=== PATIENT | male | born 1970 | race Caucasian/White ===

== ENCOUNTER → 2020-07-28 08:27 | Outpatient (CLI) | payer OTHER, SELFPAY ==
[2020-07-28] MEDS: COVID-19 VACC #1, MRNA(MOD) 100 MCG/0.5 ML VIAL IM (08:38)
== END ==
PROVIDERS: Visit Provider Internal Medicine
DX: Z23 Encounter for immunization (principal)
CPT/HCPCS: 0011A; 91301

== ENCOUNTER → 2020-08-25 08:18 | Outpatient (CLI) | payer OTHER, SELFPAY ==
[2020-08-25] MEDS: COVID-19 VACC #2, MRNA(MOD) 100 MCG/0.5 ML VIAL IM (08:26)
== END ==
PROVIDERS: Visit Provider Internal Medicine
DX: Z23 Encounter for immunization (principal)
CPT/HCPCS: 0012A; 91301

== ENCOUNTER → 2020-10-10 13:13 | Outpatient (CLI) | payer OTHER, SELFPAY ==
--- NOTE | 2020-10-10 13:14 | DI.RAD.S_ITS ---
PROCEDURE: XR KNEE LT 3V INDICATIONS: swollen knee TECHNIQUE: 3 views of the knee were acquired. COMPARISON: None. FINDINGS: Bones: No fractures or dislocations. No suspicious bony lesions. Soft tissues: Large joint effusion. No lipohemarthrosis demonstrated. Prepatellar soft tissue swelling suspected. No suspicious soft tissue calcifications. IMPRESSION: No fracture or dislocation. Large joint effusion. If clinically indicated consider further evaluation with MRI of the knee. Dictated by: Karri Wolfe M.D. on 10/10/2020 at 13:50 Approved by: Karri Wolfe M.D. on 10/10/2020 at 13:52
== END ==
PROVIDERS: PCP Family Medicine; Referring Provider Physician Assistant; Visit Provider Physician Assistant
DX: R60.9 Edema, unspecified (principal); M25.462 Effusion, left knee
CPT/HCPCS: 73562

== ENCOUNTER → 2020-10-20 17:38 | Outpatient (CLI) | payer OTHER, SELFPAY ==
--- NOTE | 2020-10-20 | DI.MRI.S_ITS ---
PROCEDURE: MR KNEE LT WO CON INDICATIONS: Strain of left quadriceps muscle Pain in left knee TECHNIQUE: Noncontrast sagittal PD fast spin echo and T2 fast spin echo with fat saturation, sagittal 3-D FLASH with fat saturation; coronal T1 spin echo and PD fast spin echo with fat saturation, and axial PD fast spin echo with fat saturation through the knee. COMPARISON: None. FINDINGS: Image quality: Excellent. Menisci: The medial and lateral menisci demonstrate normal morphology and internal signal. The meniscal root ligaments appear intact. Cruciate ligaments: The anterior and posterior cruciate ligaments appear intact. Medial structures: The medial collateral ligament appears intact. The posterior oblique ligament, semimembranosus tendon insertions, oblique popliteal ligament, and meniscocapsular junction appear intact. Visualized portions of the pes anserinus tendons appear normal. No abnormal bursal fluid. Lateral structures: The lateral collateral ligament, long and short heads of the biceps femoris tendon appear intact. The popliteus tendon appears normal; the popliteofibular ligament appears intact. The posterosuperior and anteroinferior popliteomeniscal fascicles appear intact. The arcuate and fabellofibular ligaments appear intact, on either side of the lateral inferior geniculate artery. Iliotibial band appears normal. Anterior structures: There is soft tissue swelling along anterior aspect of patella and patella tendon. There is full-thickness rupture of the distal quadriceps tendon at its insertion on superior patella with up to 1.7 cm proximal retraction of torn tendon fibers and moderate amount of surrounding fluid and soft tissue edema. Patellar tendon is intact. Patellar alignment is normal. No femoral trochlear dysplasia or ventral trochlear prominence. No edema in the infrapatellar fat pad. Bones and cartilage: No bone marrow contusions or fractures. The cartilage of the medial and lateral femorotibial compartments appears normal in thickness. 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 Joint space: There is small to moderate amount of joint fluid. No Looney's cyst. Normal appearing synovial plicae are incidentally noted. IMPRESSION: 1. Full-thickness rupture of distal quadriceps tendon at its insertion on superior patella with up to 1.7 cm proximal retraction of torn tendon fibers and extensive surrounding soft tissue edema and fluid. Patellar tendon is intact. 2. 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 No marrow edema. No fracture or dislocation. 3. Cruciate ligaments are intact. 4. No evidence of focal meniscal tear. Dictated by: Shawn Hamilton M.D. on 10/23/2020 at 8:23 Approved by: Shawn Hamilton M.D. on 10/23/2020 at 8:35
--- NOTE | 2020-10-20 | DI.MRI.S_ITS ---
PROCEDURE: MR FEMUR LT WO CON INDICATIONS: Strain of left quadriceps muscle Pain in left knee TECHNIQUE: Noncontrast coronal and sagittal T1 spin echo and STIR; axial T1 spin echo and T2 fast spin echo with fat saturation through the left thigh. COMPARISON: None. FINDINGS: Image quality: Excellent. Bones: The visualized bone marrow demonstrates normal signal on all sequences. The overlying cortex appears intact. No fractures lines or intra-osseous lesions. Soft tissues: There is edema involving distal vastus matter Porter muscle extending to musculotendinous junction with full-thickness rupture of distal quadriceps tendon at its superior patellar insertion and up to 1.7 cm proximal retraction of torn tendon fibers with surrounding soft tissue edema and fluid. Moderate left knee joint effusion is seen. No other muscle or tendon signal abnormality is seen. Visualized portion of patellar tendon is intact. IMPRESSION: 1. Full-thickness rupture involving most distal left quadriceps tendon with up to 1.7 cm proximal retraction to the 2. Strain/low-grade partial-thickness tear involving distal left vastus lateralis muscle extending to musculotendinous junction. 3. No marrow edema or suspicious intraosseous lesion. No fracture or dislocation is seen in left femur. No evidence of avascular necrosis of femoral head. Dictated by: Shawn Hamilton M.D. on 10/23/2020 at 10:11 Approved by: Shawn Hamilton M.D. on 10/23/2020 at 10:52
== END ==
PROVIDERS: PCP Family Medicine; Referring Provider Orthopaedic Surgery Adult Reconstructive Orthopaedic Surgery; Visit Provider Orthopaedic Surgery Adult Reconstructive Orthopaedic Surgery
DX: S76.112A Strain of left quadriceps muscle, fascia and tendon, initial encounter (principal); M25.562 Pain in left knee; M94.262 Chondromalacia, left knee
CPT/HCPCS: 73718; 73721

== ENCOUNTER → 2020-10-23 16:17 | Outpatient (CLI) | payer OTHER, SELFPAY ==
[2020-10-23 17:23] LABS: Add Manual Diff / Slide Review NO; Basophils Absolute Auto 0 /uL (0-100); Basophils Percent Auto 0.5 % (0-2); Eosinophils Absolute Auto 200 /uL (0-450); Eosinophils Percent Auto 2.9 % (2-4); Hematocrit 44.5 % (41-53); Hemoglobin 15.2 g/dL (13.5-17.5); Lymphocytes Absolute Auto 1900 /uL (1100-4500); Lymphocytes Percent Auto 30.2 % (25-40); Mean Corpuscular HGB Conc 34.2 % (30-36); Mean Corpuscular Hemoglobin 31.6 PG (26-34); Mean Corpuscular Volume 92.6 fL (80-100); Monocytes Absolute Auto 700 /uL (0-900); Monocytes Percent Auto 11.1 % (3-14); Neutrophils Absolute Auto 3500 /uL (1500-7000); Neutrophils Percent Auto 55.3 % (50-75); Platelet Count 238 X10^3/uL (150-400); Red Blood Cell Count 4.81 X10^6/uL (4.5-5.9); Red Cell Distribution Width 13.8 % (11.6-14.8); White Blood Cell Count 6.2 X10^3/uL (4.5-11.0)
[2020-10-23 18:10] LABS: BUN Creatinine Ratio 20.6 (6-22); Blood Urea Nitrogen 20 mg/dL (9-20); Calcium 8.9 mg/dL (8.4-10.2); Carbon Dioxide 26 mmol/L (22-32); Chloride 105 mmol/L (98-107); Estimated Glomerular Filt Rate > 60.0 mL/min (>60); Glucose 88 mg/dL (70-100); HEMOLYSIS < 15 (0-50); Potassium 4.2 mmol/L (3.4-5.1); Sodium 136 mmol/L (137-145)
== END ==
PROVIDERS: PCP Family Medicine; Referring Provider Orthopaedic Surgery Adult Reconstructive Orthopaedic Surgery; Visit Provider Orthopaedic Surgery Adult Reconstructive Orthopaedic Surgery
DX: M25.562 Pain in left knee (principal); Z01.818 Encounter for other preprocedural examination; Z01.812 Encounter for preprocedural laboratory examination
CPT/HCPCS: 36415; 80048; 85025; 93005; 93010

== ENCOUNTER → 2023-02-26 16:02 | Outpatient (CLI) | payer OTHER, SELFPAY ==
--- NOTE | 2023-02-26 | DI.RAD.S_ITS ---
PROCEDURE: XR HIP W PEL IF DONE RT 2V INDICATIONS: HIP PAIN TECHNIQUE: AP pelvis with lateral view(s) of the right hip(s). COMPARISON: [facility], , HIP 2V RIGHT, 12/29/2012, 12:21. [facility], , HIP 2V LEFT, 04/11/2009, 8:55. FINDINGS: Bones: No fractures or dislocations. Right hip arthroplasty in place. The hardware appears intact without surrounding fracture or lucency. Mild degenerative changes of the left hip with joint space narrowing and marginal spurring. Pelvic ring appears intact. No suspicious bony lesions. Soft tissues: The visualized bowel gas pattern is normal. No suspicious soft tissue calcifications. IMPRESSION: Right hip arthroplasty without evidence of complication. Mild degenerative changes of the left hip. Dictated by: Juan M Canales M.D. on 02/26/2023 at 16:39 Approved by: Juan M Canales M.D. on 02/26/2023 at 16:40
--- NOTE | 2023-02-26 | DI.RAD.S_ITS ---
PROCEDURE: XR KNEE RT 1TO2V INDICATIONS: RIGHT KNEE PAIN TECHNIQUE: Two views of the knee were acquired. COMPARISON: [facility], CR, XR KNEE LT 3V, 10/10/2020, 13:20. FINDINGS: Bones: No fractures or dislocations. Mild degenerative changes of the knee with mild medial joint space narrowing and marginal spurring. No suspicious bony lesions. Soft tissues: Small joint effusion. No suspicious soft tissue calcifications. IMPRESSION: Mild degenerative changes of the left knee. No acute osseous abnormalities. Dictated by: Juan M Canales M.D. on 02/26/2023 at 16:38 Approved by: Juan M Canales M.D. on 02/26/2023 at 16:39
== END ==
PROVIDERS: PCP Family Medicine; Referring Provider Family Medicine; Visit Provider Family Medicine
DX: S76.111A Strain of right quadriceps muscle, fascia and tendon, initial encounter (principal); X58.XXXA Exposure to other specified factors, initial encounter; Z96.641 Presence of right artificial hip joint
CPT/HCPCS: 73502; 73560

== ENCOUNTER → 2023-03-17 | Outpatient (CLI) | payer OTHER, SELFPAY ==
--- NOTE | 2023-03-17 | DI.MRI.S_ITS ---
PROCEDURE: MR FEMUR RT WO CON INDICATIONS: STRAIN OF RIGHT QUDRICEP MUSCLES TECHNIQUE: Noncontrast coronal and sagittal T1 spin echo and STIR; axial T1 spin echo and T2 fast spin echo with fat saturation through the right thigh COMPARISON: None. FINDINGS: Image quality: Excellent. Bones: Patient is status post prior right total hip arthroplasty with susceptibility artifact seen in proximal to mid right femoral shaft. No gross marrow edema. No acute fracture or dislocation. No suspicious intraosseous lesions. Soft tissues: There is edema involving right vastus intermedius muscle with fluid extending along fascial plane between vastus intermedius and vastus lateralis muscles. Edema is also noted within posterior medial aspect of mid to distal vastus medialis muscle and lateral aspect of vastus medialis muscle extending to musculotendinous junction. There is thickening of the quadriceps tendon with full-thickness rupture from its insertion on superior patella and up to 1.5 cm proximal retraction of torn tendon fibers and moderate to large amount of surrounding fluid and soft tissue edema. Moderate amount of right knee joint effusion is seen. No significant patellar subluxation. No intra-articular loose bodies. IMPRESSION: 1. Full-thickness rupture of distal quadriceps tendon at its superior patellar insertion with up to 1.5 cm proximal retraction of torn tendon fibers and large amount of surrounding fluid and soft tissue edema. 2. Strain/low-grade partial-thickness tear involving mid to distal right vastus medialis muscle, vastus lateralis muscle, and vastus intermedius muscle as described above. No other muscle signal abnormality is seen in right thigh. 3. Prior right total hip arthroplasty with susceptibility artifacts. No marrow edema. No fracture or dislocation. No suspicious bony lesions. Dictated by: Shawn Hamilton M.D. on 03/18/2023 at 11:47 Approved by: Shawn Hamilton M.D. on 03/18/2023 at 12:01
== END ==
LOC: MRI 19:50
PROVIDERS: PCP Family Medicine; Referring Provider Orthopaedic Surgery; Visit Provider Physician Assistant
DX: S76.111A Strain of right quadriceps muscle, fascia and tendon, initial encounter (principal); S76.811A Strain of other specified muscles, fascia and tendons at thigh level, right thigh, initial encounter; Z96.641 Presence of right artificial hip joint; X58.XXXA Exposure to other specified factors, initial encounter
CPT/HCPCS: 73718

== ENCOUNTER 2023-03-26 12:26 | Day surgery (SDC) | payer OTHER, SELFPAY ==
[2023-03-20 12:03] VITALS: BMI 36.8
[2023-03-26] VITALS (8 sets, daily range): BP systolic 138–165; BP diastolic 86–99; PULSE 78–94; RESP 11–18; TEMP 36.6–37; O2SAT 94–97; BMI 35.2
--- NOTE | 2023-03-26 | DI.RAD.S_ITS ---
PROCEDURE: XR KNEE RT 1TO2V INDICATIONS: TNEDON TECHNIQUE: 2 operative views of the knee were acquired. COMPARISON: [facility], MR, MR FEMUR RT WO CON, 03/17/2023, 19:55. [facility], CR, XR KNEE RT 1TO2V, 02/26/2023, 16:21. FINDINGS: Operative imaging utilized demonstrates a surgical procedure involving the patella, to repair a distal quadriceps tendon rupture. IMPRESSION: Operative imaging utilized for repairing a distal quadriceps tendon rupture. Dictated by: Jim Whitman M.D. on 03/27/2023 at 14:08 Approved by: Jim Whitman M.D. on 03/27/2023 at 14:10
--- NOTE | 2023-03-26 14:02 | PM.PREOP ---
Pre-operative Note Interval Note History & Physical reviewed/Exam performed by Physician: Yes Changes to H&P: No
[2023-03-26] MEDS: CEFAZOLIN 2 GM/100 ML PREMIX 100 ML IV (14:16)
[2023-03-26] MEDS: TRANEXAMIC ACID 1,000 MG in SODIUM CHLORIDE 0.9% 100 ML 200 MG IV (14:39)
--- NOTE | 2023-03-26 14:42 | SUR.OPER ---
Supine on padded OR bed, head on pillow, arms secured on padded arm boards at <90 degrees abduction, legs uncrossed, operative leg draped free on field. safety belt at thigh, tape over blanket over lower legs.
[2023-03-26] MEDS: BUPIVACAINE 0.5% (PF) 30 ML, EPINEPHrine 0.15 MG INJ (15:01)
--- NOTE | 2023-03-26 15:44 | PM.OP.1 ---
Operative Date/Time/Diagnoses Date of procedure: 03/26/23 Time of procedure: 15:50 Pre-op diagnosis: Right quad tendon rupture Post-op diagnosis: same Procedure & Clinicians Procedure: Right quadriceps tendon repair Same procedure as scheduled: Yes Indications: This is a 52-year-old male who had a right quad tendon rupture with a large extensor lag. We discussed that in order to restore his extensor mechanism he was indicated for quadriceps tendon repair. Surgeon: Edward Shin Jig Bore Operator: Tomasz Duong Anesthesia Type: General Operative Notes Findings: Quadriceps rupture off of the proximal pole of the patella Closure Type: primary Specimen(s): none sent Prosthetic devices, grafts, tissues, transplants, or devices: Tight rope button x2 Estimated Blood Loss (mL): 10 Blood products transfused: none Tourniquet time (min): 30 Procedure in detail: Patient was met in the preoperative holding area the right lower extremity was examined and marked with my initials. Preoperative exam demonstrated an extensor lag in a divot just proximal to the proximal pole of the patella. We again discussed risks benefits and he wished to go forward with surgery. He was taken back to the operating room placed supine on the operating table with a bump under the right hip and towels under the right knee. He underwent smooth induction of anesthesia and IV antibiotics and TXA was given. Time-out was performed and my initials were again confirmed on the right lower extremity. Esmarch was used and a tourniquet was inflated on the upper thigh to 250 mmHg. A direct midline incision was taken down to the patella and to the quadriceps. It was noted at this time that there was a rent in the retinaculum and a rupture of the quadriceps tendon off of the proximal pole of the patella. Beginning very proximal on the tendon at the musculotendinous junction, a 2. FiberWire suture was sewn in a Krackow fashion from proximal to distal and then from distal to proximal. At the midpoint it was placed through the loop of a tight rope construct. This was done a 2nd time on the other side of the tendon. Next, 2 separate 4.0 mm drill holes were made in the sutures along with the tight rope button were passed through the patella from proximal to distal. At the distal end, the buttons were flipped and tensioned for a secure repair. There was no noticeable gapping at 10 and 20? of flexion. Retinaculum was then closed with 2. Ethibond. The wounds were closed with 0 Vicryl, 2-0 Vicryl and peyman. The wounds were dressed with an Aquacel dressing. Patient was awoken from anesthesia without any complications and transported to the postoperative recovery unit. Complications: none Post-operative Condition: stable Disposition: PACU Plan for aftercare: Postoperatively, no weight-bearing for the 1st 2 weeks, either hinged knee brace or knee immobilizer or cast in full extension, no flexing the knee. Aquacel dressing to remain on for 2 weeks. This will be removed in clinic as well as the underlying peyman. Okay to shower with soap and water running over top of the dressing. NOTE: If water gets underneath the dressing, please remove the dressing and replace with clean dry 4x4s.
[2023-03-26] MEDS: OXYCODONE IR 5 MG TABLET PO ×2 (15:59→16:33)
[2023-03-26] MEDS: hydrOXYzine pamoate 25 MG CAPSULE PO (16:29)
[2023-03-26] MEDS: ACETAMINOPHEN IV 1,000 MG/100 ML VIAL 400 MG IV (16:31)
== END 2023-03-26 17:26 | disposition home or self-care (01) ==
PROVIDERS: PCP Family Medicine; Referring Provider Orthopaedic Surgery; Visit Provider Orthopaedic Surgery
PROC: (CPT 27385; principal; 2023-03-26 13:45)
DX: S76.111A Strain of right quadriceps muscle, fascia and tendon, initial encounter (principal); W01.0XXA Fall on same level from slipping, tripping and stumbling without subsequent striking against object, initial encounter
CPT/HCPCS: 27385; 73560; 76000; J0131; J0171; J0690; J1100; J1885; J2405; J2704; J3010

== ENCOUNTER 2023-06-05 11:31 | Day surgery (SDC) | payer OTHER, SELFPAY ==
[2023-06-05 12:02] VITALS: BP 154/99; PULSE 72; RESP 20; TEMP 36.6; O2SAT 98
[2023-06-05] MEDS: LACTATED RINGERS 1,000 ML 42 ML IV (12:14)
--- NOTE | 2023-06-05 12:18 | P.HP_ITS ---
History of Present Illness History of Present Illness Date Patient Seen: 06/05/23 Time Patient Seen: 12:18 Chief complaint: Colonoscopy Narrative: Remy is a 52-year-old man who presents for his first screening colonoscopy. No family history of colon cancer. [facility] Medical History (Updated 06/05/23 @ 12:18 by Remy Chapa MD) Rotator cuff tendonitis Hyperglycemia HLD (hyperlipidemia) HTN (hypertension) Surgical History (Updated 03/20/23 @ 12:29 by Rosy Tan RN) Hx of hand surgery History of total right hip replacement (07/2012) Social History household members: spouse Smoking Status: Never smoker Meds Home Medications and Allergies Home Medications Medication Instructions Recorded Confirmed Type ibuprofen 200 mg tablet 400 mg PO Q6H PRN Pain 03/20/23 03/26/23 History ibuprofen 600 mg tablet 600 mg PO Q6H PRN pain #60 tabs 03/26/23 06/05/23 Rx losartan 25 mg tablet 25 mg PO DAILY 03/26/23 06/05/23 History Allergies Allergy/AdvReac Type Severity Reaction Status Date / Time No Known Drug Allergies Allergy Verified 06/05/23 12:00 Exam Vital Signs (past 8 hours): - 06/05/23 12:02 Temperature 97.8 F Pulse Rate 72 Respiratory Rate 20 Blood Pressure 154/99 H Pulse Oximetry 98 Oxygen Delivery Method Room Air Oxygen Delivery Method Room Air Const General: No acute distress Resp Effort & Inspection: normal respiratory effort Assessment & Plan Assessment and plan (1) Colon cancer screening: Status: Acute Plan We reviewed the risks and benefits of colonoscopy for colon cancer screening and like to proceed.
--- NOTE | 2023-06-05 12:42 | PM.OP.COLON ---
Operative Date/Time/Diagnoses Date of procedure: 06/05/23 Time of procedure: 12:42 Pre-op diagnosis: Colon cancer screening Post-op diagnosis: same Procedure & Clinicians Study performed: Colonoscopy Same procedure as scheduled: Yes Surgeon: Remy Chapa Procedure Notes Procedure in detail: Surgeon: Remy Chapa MD Anesthesia: Boone Ellis D.O. Procedure: The patient was brought to the endoscopy suite, placed in left lateral decubitus position. The patient was connected to monitoring devices. A time-out was performed. Sedation was administered. Once the patient was adequately sedated, a digital rectal exam was performed and was normal. The scope was then inserted and advanced to the cecum where the appendiceal orifice was identified and photographed. The scope was then slowly withdrawn over greater than 6 minutes. The mucosa was thoroughly inspected. No abnormalities were found. The scope was retroflexed in the rectum. Mild internal hemorrhoids were noted. The scope was straightened and removed. The patient was awakened and brought to recovery. Scope withdrawal time: 7 minutes Sedation time: 10 minutes EBL: 0 Findings: Normal colon Post-procedure Recommendations: Colonoscopy in 10 years Disposition: PACU
[2023-06-05 12:44] VITALS: BP 123/80; PULSE 99; RESP 16; TEMP 36.8; O2SAT 95
[2023-06-05 12:48] VITALS: BP 123/70; PULSE 100; RESP 16; O2SAT 98
[2023-06-05 12:53] VITALS: BP 129/92; PULSE 84; RESP 16; TEMP 36.2; O2SAT 98
== END 2023-06-05 13:02 | disposition home or self-care (01) ==
PROVIDERS: PCP Family Medicine; Referring Provider Surgery; Visit Provider Surgery
PROC: 0DJD8ZZ Inspection of Lower Intestinal Tract, Via Natural or Artificial Opening Endoscopic (ICD-10-PCS; CPT 45378; principal; 2023-06-05 12:30)
DX: Z12.11 Encounter for screening for malignant neoplasm of colon (principal); K64.8 Other hemorrhoids
CPT/HCPCS: 45378; J2704